=== PATIENT | male | born 1960 | race Caucasian/White ===

== ENCOUNTER 2023-08-04 05:53 | Day surgery (SDC) | payer OTHER ==
[2023-07-20 10:16] VITALS: BP 124/81
[~2023-08-04] VITALS: Ht 180.3 cm; Wt 86.4 kg
[~2023-08-04 05:53] MED LIST: FLOMAX0.4 MG PO; LEXAPRO10 MG PO; PANTOPRAZOLE SO40 MG PO
[2023-08-04 06:05] VITALS: BP 126/85
[2023-08-04] MEDS ORDERED: IBUPROFEN600 MG PO (08:43)
[2023-08-04] MEDS ORDERED: OXYCODON-ACETA1 EAC2 PO (08:44)
[2023-08-04] MEDS ORDERED: ACETAMINOPHEN500 MG PO (08:44)
[2023-08-04 09:07] VITALS: BP 116/66
[2023-08-04 10:23] VITALS: BP 114/60
[2023-08-04 11:10] VITALS: BP 122/76
--- NOTE | 2023-08-05 11:20 | OR ---
[facility] [address], [place] [address] Signed DATE OF OPERATION: 08/04/2023 SURGEON: Manuelito Flores MD PREOPERATIVE DIAGNOSIS: Umbilical hernia, defect less than 3 cm. POSTOPERATIVE DIAGNOSIS: Umbilical hernia, defect less than 3 cm. PROCEDURE: 1. Repair of umbilical hernia, defect less than 3 cm. 2. Implantation of Prolene mesh, underlay technique with primary fascial closure. ANESTHESIA: Farhat Mccrary. General LMA and local 10 mL of 0.25% Marcaine with epinephrine. INDICATION: This 63-year-old white man is a patient of Dr. Arrieta. He is referred with umbilical hernia. The defect has been noted for quite some time. Mostly, he is able to reduce it by laying down and with various manipulations. He has had no associated constipation, urinary outlet obstructive symptoms, or other problems. He is admitted at this time to undergo repair of the hernia. He understands the risk of bleeding, infection, recurrence, and chronic pain problems. Understanding this, he wished to proceed. FINDINGS: The herniated tissue was properitoneal fat. The defect was less than 3 cm in total. Implantation of Prolene mesh into the properitoneal space was accomplished with primary transverse reapproximation of the fascia. There were no complications. DESCRIPTION OF PROCEDURE: The patient was brought to the operating room, given a general LMA type anesthetic. Preoperative antibiotic, Ancef was given. Sequential compression device stockings used and heparin subcutaneously administered. The abdomen was clipped and prepared with a chlorhexidine solution and draped sterilely. A curvilinear incision was made lateral to the umbilical fold on the left side. Dissection carried through the dermis with sharp dissection. Dissection was carried down to the fascia itself. Herniated properitoneal fat densely adherent to the dermis of the umbilical skin was noted. This was freed with electrocautery. Circumferential dissection of the overlying fascia was undertaken from the subcutaneous tissue. The herniated properitoneal fat was replaced into the Electronically Signed By: MANUELITO FLORES MD 08/05/23 1120 PATIENT NAME: EYAD HUTCHISON OPERATIVE REPORT DATE OF : 58 REPORT #: [id number] PHYSICIAN: MANUELITO FLORES MD PCP: FELIZ ARRIETA MD REPORT IS CONFIDENTIAL AND NOT TO BE RELEASED WITHOUT AUTHORIZATION [facility] [address] [place] [id number] Signed properitoneal space. Using blunt dissection, the space of the between the peritoneum and the overlying fascia was developed circumferentially. The fascial defect was less than 3 cm in aggregate. A segment of Prolene mesh was cut to a circular configuration and secured to the properitoneal space with interrupted 0 Prolene sutures. The fascia was reapproximated with interrupted 0 Prolene in a vertical mattress configuration. 10 mL of 0.25% Marcaine with epinephrine injected locally. Jonny's layer was reapproximated with interrupted 2-0 Vicryl and the skin closed with a running subcuticular 3-0 Vicryl, Steri-Strips were applied. The patient was ultimately extubated and transferred to the recovery room in good condition having suffered no complications. Sponge, needle, and instrument counts were reported as correct x3. Manuelito Flores MD JM/MODL /[id number] cc: Feliz Arrieta MD Copies: FELIZ ARRIETA MD ~ Electronically Signed By: MANUELITO FLORES MD 08/05/23 1120 PATIENT NAME: EYAD HUTCHISON OPERATIVE REPORT DATE OF : 58 REPORT #: [id number] PHYSICIAN: MANUELITO FLORES MD PCP: FELIZ ARRIETA MD REPORT IS CONFIDENTIAL AND NOT TO BE RELEASED WITHOUT AUTHORIZATION
== END 2023-08-04 11:18 | disposition home or self-care (01) ==
LOC: DS 05:53
PROVIDERS: ATTEND Surgery
PROC: 0WUF0JZ Supplement Abdominal Wall with Synthetic Substitute, Open Approach (ICD-10-PCS; principal; 2023-08-04 07:30)
DX: K42.9 Umbilical hernia without obstruction or gangrene (principal); K21.9 Gastro-esophageal reflux disease without esophagitis; Z79.899 Other long term (current) drug therapy
CPT/HCPCS: 00750; C1781; J0131; J0690; J1100; J1644; J1885; J2001; J2405; J2704; J3010; J3490; J7121

== ENCOUNTER 2025-10-16 18:34 | Emergency (ER) | payer MEDICARE, OTHER ==
[~2025-10-16] VITALS: Ht 180.3 cm; Wt 84.9 kg
[~2025-10-16 18:34] MED LIST changes: +ACETAMINOPHEN500 MG PO; +IBUPROFEN600 MG PO; +OXYCODON-ACETA1 EAC2 PO
[2025-10-16 20:08] LABS: BASOPHILS 0.6 % (0.2-1.2); EOSINOPHILS 2.1 % (0.8-7.0); LYMPHOCYTES 27.5 % (21.8-53.1); MCH 31.2 PG (25.7-32.2); MCHC 34.5 g/dL (32.3-36.5); MCV 90.3 fL (79.0-92.2); MONOCYTES 7.8 % (5.3-12.2); NEUTROPHILS 61.8 % (34.0-67.9); RBC 4.94 M/uL (4.63-6.08)
[2025-10-16 20:29] LABS: ALT (SGPT) 28.0 U/L (14-59); AST (SGOT) 18.0 U/L (15-37); GLOMERULAR FILTRATION RATE,EST 57.0 mL/min (>60); PROTEIN, TOTAL 6.6 g/dL (6.4-8.2); UREA NITROGEN 18.0 mg/dL (7-18)
[2025-10-16 20:30] LABS: INR 1.06 (0.80-1.30); PROTIME 13.1 Sec (11.2-14.2)
[2025-10-16 21:27] VITALS: BP 127/80
--- NOTE | 2025-10-17 13:57 | EKG ---
[facility] [address] [facility] [place] [address] Signed Normal sinus rhythm Minimal voltage criteria for LVH, may be normal variant ( R in aVL ) Septal infarct , age undetermined Abnormal ECG No previous ECGs available Confirmed by Joel Portillo DO ([id number]) on 10/17/2025 1:57:18 PM Electronically Signed By: JOEL PORTILLO DO 10/17/25 1357 PATIENT NAME: FOSTEREYAD RESHMA Electrocardiogram DATE OF : 58 PHYSICIAN: JOEL PORTILLO DO REPORT #: [id number] REPORT IS CONFIDENTIAL AND NOT TO BE RELEASED WITHOUT AUTHORIZATION
== END 2025-10-16 21:25 | disposition home or self-care (01) ==
LOC: ED 18:34
PROVIDERS: Emergency Medicine
DX: R42 Dizziness and giddiness (principal); K21.9 Gastro-esophageal reflux disease without esophagitis; Z79.899 Other long term (current) drug therapy
CPT/HCPCS: 36415; 70450; 70496; 70498; 80053; 85025; 85610; 85730; 93005; 93010; 99284-25; Q9967